=== PATIENT | female | born 1985 | race Caucasian/White ===

== ENCOUNTER → 2021-06-09 | Outpatient (CLI) | payer BC | LOC: RAD 18:22 | DX: M50.222 Other cervical disc displacement at C5-C6 level (principal); M48.02 Spinal stenosis, cervical region ==

== ENCOUNTER 2021-10-17 15:01 | Emergency (ER) | payer BC ==
[~2021-10-17] VITALS: Ht 170.2 cm; Wt 81.8 kg
[2021-10-17] MEDS ORDERED: BUTALBITAL, ACE1 TA2 PO (15:36)
[2021-10-17] MEDS ORDERED: SUMATRIPTAN SUC50 M1 PO (15:36)
[2021-10-17] MEDS ORDERED: DULOXETINE60 MG PO (15:37)
[2021-10-17] MEDS ORDERED: XANAX0.5 M1 PO (15:37)
[2021-10-17] MEDS ORDERED: VITAMIN D310 MC1 PO (15:37)
[2021-10-17] MEDS ORDERED: PROBIOTIC1 EAC1 PO (15:38)
[2021-10-17 17:56] VITALS: BP 122/78
== END 2021-10-17 17:57 | disposition home or self-care (01) ==
LOC: ED 15:01
DX: R51.9 Headache, unspecified (principal); Z86.69 Personal history of other diseases of the nervous system and sense organs; Z28.310 Unvaccinated for COVID-19
CPT/HCPCS: J2550; J3010